=== PATIENT | male | born 1980 | race Caucasian/White ===

== ENCOUNTER 2017-09-27 12:38 | Emergency (ER) | payer BC ==
[2017-09-27 12:54] VITALS: BP 134/89
--- NOTE | 2017-09-27 13:12 | ED ---
Throat Pain/Nasal Congestion - HPI Summary HPI Summary: 37-year-old male presents with lesions on his hands and feet and a sore throat for the past 2 days. His son was recently diagnosed with uais-mezb-kok-mouth as it went through the daycare and he had a fever. He states he is concerned because the is . He admits to a fever that started on Sunday but has since resolved. He has been taking ibuprofen. No cough. No sinus congestion. No other symptoms. Has no medical conditions. - History of Current Complaint Chief Complaint: UCGeneralIllness Time Seen by Provider: 09/27/17 12:55 - Allergies/Home Medications Allergies/Adverse Reactions: Allergies Allergy/AdvReac Type Severity Reaction Status Date / Time No Known Allergies Allergy Verified 09/27/17 12:54 PMH/Surg Hx/FS Hx/Imm Hx Endocrine/Hematology History: Denies: Hx Diabetes, Hx Thyroid Disease Cardiovascular History: Reports: Hx Hypertension Respiratory History: Denies: Hx Asthma, Hx Chronic Obstructive Pulmonary Disease (COPD) GI History: Denies: Hx Ulcer - Surgical History Surgery Procedure, Year, and Place: SKIN SURGERIES R/T [facility] Infectious Disease History: No Infectious Disease History: Denies: Hx Hepatitis, Hx Human Immunodeficiency Virus (HIV), Traveled Outside the [place] in Last 30 Days - Family History Known Family History: Positive: Hypertension - Social History Alcohol Use: Occasionally Substance Use Type: Reports: None Smoking Status (MU): Never Smoked Tobacco Review of Systems Positive: Fever Positive: Sore Throat Negative: Chest Pain Negative: Shortness Of Breath Positive: Rash All Other Systems Reviewed And Are Negative: Yes Physical Exam Triage Information Reviewed: Yes Vital Signs On Initial Exam: Initial Vitals Temp Pulse Resp BP Pulse Ox 97.6 F 56 16 134/89 100 09/27/17 12:51 09/27/17 12:51 09/27/17 12:51 09/27/17 12:51 09/27/17 12:51 Vital Signs Reviewed: Yes Appearance: Positive: Well-Appearing Skin: Positive: Warm, Dry, Other - Maculopapular lesions on hands and Head/Face: Positive: Normal Head/Face Inspection Eyes: Positive: Normal, EOMI, ROMY, Conjunctiva Clear ENT: Positive: Normal ENT inspection, TMs normal, Other - vesicles in the mouth with surrounding erythema Neck: Positive: Supple, Nontender, No Lymphadenopathy Respiratory/Lung Sounds: Positive: Clear to Auscultation, Breath Sounds Present Cardiovascular: Positive: Normal, RRR Musculoskeletal: Positive: Normal Neurological: Positive: Normal Psychiatric: Positive: Normal Diagnostics - Vital Signs Vital Signs Temp Pulse Resp BP Pulse Ox 09/27/17 12:51 97.6 F 56 16 134/89 100 - Laboratory Lab Statement: Any lab studies that have been ordered have been reviewed, and results considered in the medical decision making process. EENT Course/Dx - Course Course Of Treatment: 37-year-old male presents with lesions on his hands and feet and a sore throat for the past 2 days. His son was recently diagnosed with fyat-xerd-jns-mouth as it went through the daycare and he had a fever. He states he is concerned because the is . He admits to a fever that started on Sunday but has since resolved. He has been taking ibuprofen. No cough. No sinus congestion. No other symptoms. Has no medical conditions. On exam has maculopapular lesions of hand. in mouth has vesciles with erythema around. uvula midline, soft palate symmetric. We'll give Magic mouthwash for symptomatically relief. Told to do basic hand washing to prevent from getting sick. will have follow up with primary about blood pressure as has dx of HTN. Patient understands agrees with plan. - Differential Diagnoses Differential Diagnoses: Pharyngitis, Tonsilitis, Other - hermangia - Diagnoses Provider Diagnoses: Hand, foot and mouth disease Discharge - Sign-Out/Discharge Documenting (check all that apply): Patient Departure - Discharge Plan Condition: Good Disposition: HOME Prescriptions: Magic Mouth Was-DREW/MAAL/LIDO* 5 ml SWISH SPIT QID #100 ml Patient Education Materials: Hand, Foot, and Mouth Disease (ED) Referrals: Danika Joyce MD [Primary Care Provider] - Additional Instructions: Magic mouthwash 5ml swish and spit can use 4x a day Take Tylenol or ibuprofen for pain every 6 hours Can gargle salt water Can use cough drops or products such as cloraseptic spray to prevent spread wash hands, wash all surfaces with antibacterial wipes Establish care with primary care physician Return to if develop any new or worsening symptoms Per institutional requirements, I have reviewed the chart, however, I was not consulted specifically or made aware of this patient by the above midlevel provider. I did not personally evaluate, interact with , or disposition this patient. - Billing Disposition and Condition Condition: GOOD Disposition: Home
== END 2017-09-27 13:30 | disposition home or self-care (01) ==
LOC: UCEAST 12:38
DX: B08.4 Enteroviral vesicular stomatitis with exanthem (principal); I10 Essential (primary) hypertension
CPT/HCPCS: 99212; G0463